=== PATIENT | female | born 1970 | race Caucasian/White ===

== ENCOUNTER 2020-01-12 11:37 | Outpatient (CLI) | payer OTHER, SELFPAY ==
--- NOTE | ~2020-01-12 | XR_ITS ---
XR knee LT 3V 01/12/2020 12:02 Indication: Left knee pain Procedure: 3 views left knee Comparison: No prior studies for comparison. Findings: No fracture or traumatic malalignment. No significant joint effusion. There is mild patello femoral compartment osteoarthritis. Impression: 1: Mild patellofemoral compartment osteoarthritis. Reviewed, dictated and finalized at location A. Impression: 1: Mild patellofemoral compartment osteoarthritis.
[2020-01-12 11:49] LABS: Basophils Absolute Auto 0.03 K/mm3 (0.00-0.10); Basophils Percent Auto 0.3 % (0.0-1.0); Eosinophils Absolute Auto 0.15 K/mm3 (0.02-0.50); Eosinophils Percent Auto 1.4 % (1.0-6.0); Hemoglobin 13.6 g/dL (12.0-15.0); Immature Granulocyte Absolute 0.04 K/mm3 (0.00-0.00); Immature Granulocyte Percent A 0.4 % (0.0-0.0); Lymphocytes Absolute Auto 1.88 K/mm3 (1.10-4.50); Lymphocytes Percent Auto 18.1 % (18.0-42.0); Mean Corpuscular Hemoglobin 30.4 pg (27.0-31.0); Mean Corpuscular Volume 89.5 fL (78.0-102.0); Mean Platelet Volume 9.1 fl (9.2-11.8); Monocytes Absolute Auto 0.62 K/mm3 (0.10-0.90); Neutrophils Absolute Auto 7.7 K/mm3 (1.7-7.2); Neutrophils Percent Auto 73.8 % (50.0-70.0); Platelet Count Result 334 K/mm3 (150-420); Red Blood Count 4.47 M/mm3 (4.20-5.40); Red Cell Distribution Width 12.9 % (11.6-14.4); White Blood Count 10.4 K/mm3 (4.8-10.8)
[2020-01-12 13:02] LABS: Anion Gap 4 mmol/L (8-16); Blood Urea Nitrogen 7 mg/dL (7-18); Calcium 9.3 mg/dL (8.5-10.1); Carbon Dioxide 32 mmol/L (21-32); Chloride 100 mmol/L (98-108); Estimated Glomerular Filt Rate > 60; Glucose 196 mg/dL (70-99); Osmolality Calculated 285 mOsm/kg (285-295); Potassium 4.3 mmol/L (3.5-5.1); Sodium 136 mmol/L (136-145); Uric Acid 3.6 mg/dL (2.6-6.0)
[2020-01-12 13:04] LABS: Erythrocyte Sedimentation Rate 18 mm/hr (0-15)
== END 2020-01-12 11:38 | disposition home or self-care (01) ==
LOC: CHSLAB 11:40
PROVIDERS: PCP Family Medicine; Visit Provider Family Medicine
DX: M25.562 Pain in left knee (principal)
CPT/HCPCS: 36415; 73562; 80048; 84550; 85025; 85652

== ENCOUNTER 2020-09-04 12:16 | Outpatient (CLI) | payer OTHER, SELFPAY ==
[2020-09-06 15:24] LABS: TB Skin Test Erythema 0 mm; TB Skin Test Induration 0 mm (0-10); TB Skin Test Interpretation Negative (Negative); TB Skin Test Site Left Arm
== END 2020-09-04 12:17 | disposition home or self-care (01) ==
PROVIDERS: PCP Family Medicine; Visit Provider Family Medicine
DX: Z11.1 Encounter for screening for respiratory tuberculosis (principal)
CPT/HCPCS: 36415; 86580

== ENCOUNTER 2021-12-13 07:49 | Outpatient (CLI) | payer OTHER, SELFPAY ==
--- NOTE | ~2021-12-13 | MM_ITS ---
EXAMINATION: MM screening jalen BI w wojciech HISTORY: Screening TECHNIQUE: Craniocaudal and mediolateral oblique 3-D tomosynthesis images were obtained and synthetic 2-D images were generated. CAD analysis was submitted and interpreted. COMPARISON: 10/08/2015 BREAST PARENCHYMAL COMPOSITION: The breasts are heterogeneously dense, which may obscure small masses . FINDINGS: There is a focal asymmetry medially in the left breast on CC view. No corresponding abnorma lity is seen on MLO view. There is no mammographic evidence for malignancy in the right breast. IMPRESSION: 1. Focal left breast asymmetry located medially on CC view. 2. Additional mammographic views and possible breast ultrasound are recommended. BI-RADS Category 0: Incomplete: Needs additional imaging evaluation. Reviewed, dictated and finalized at location A. IMPRESSION: 1. Focal left breast asymmetry located medially on CC view. 2. Additional mammographic views and possible breast ultrasound are recommended . BI-RADS Category 0: Incomplete: Needs additional imaging evaluation.
== END 2021-12-13 07:50 | disposition home or self-care (01) ==
LOC: CHSIMG 07:50
PROVIDERS: PCP Family Medicine; Visit Provider Family Medicine
DX: Z12.31 Encounter for screening mammogram for malignant neoplasm of breast (principal)
CPT/HCPCS: 77063; 77067

== ENCOUNTER 2021-12-16 09:55 | Outpatient (CLI) | payer OTHER, SELFPAY ==
--- NOTE | ~2021-12-16 | MMUS_ITS ---
EXAMINATION: MM diagnostic jalen LT w wojciech, US breast LT limited HISTORY: Left breast asymmetry on screening mammogram TECHNIQUE: Additional 3-D tomosynthesis images of the left breast were performed and synthetic 2-D im ages were generated. CAD analysis was submitted and interpreted. High resolution limited left breast ultrasound was performed. COMPARISON: 12/13/2021, 10/08/2015 FINDINGS: MAMMOGRAPHIC FINDINGS: There is a return to baseline fibroglandular appearance with spot compression of the left breast in t he area questioned on screening mammogram. ULTRASOUND: There is no evidence of focal abnormal solid or cystic mass in the vicinity of the mammographic findi ng in question. IMPRESSION: 1. No mammographic or sonographic evidence of malignancy. 2. Recommend routine screening mammography in one year. BI-RADS Category 1: Negative Reviewed, dictated and finalized at location A. IMPRESSION: 1. No mammographic or sonographic evidence of malignancy. 2. Recommend routine screening mammography in one year. BI-RADS Category 1: Negative
== END 2021-12-16 09:56 | disposition home or self-care (01) ==
LOC: CHSIMG 09:56
PROVIDERS: PCP Family Medicine; Visit Provider Family Medicine
DX: R92.8 Other abnormal and inconclusive findings on diagnostic imaging of breast (principal)
CPT/HCPCS: 76642; 77061; 77065; G0279

== ENCOUNTER 2023-04-16 09:59 | Outpatient (CLI) | payer OTHER, SELFPAY ==
--- NOTE | ~2023-04-16 | XR_ITS ---
EXAM: XR hand BI arthritis min 3V DATE: 04/16/2023 10:26 HISTORY: polyarthritis, unspecified . COMPARISON: 12/13/2015. FINDINGS: Normal mineralization. No fracture or dislocation. No lytic or blastic lesion. Scattered a rthritic changes typical of osteoarthritis, moderate at the left trapeziometacarpal joint, mild at th e right trapeziometacarpal joint, bilateral first MCP joints, left third PIP joint and left fifth DIP joint. Subchondral cyst in the proximal left third middle phalange. Moderate swan-neck deformity in the left fifth digit, mild in the right third and fourth digits. Flexion deformity in the right fifth digit. No erosion or periosteal change. Soft tissues within normal limits. IMPRESSION: Polyarticular osteoarthritis of the hands. Flexion deformity of the left fifth digit. [place] neck deformities of multiple fingers, classically associated with rheumatoid arthritis, although no other rheumatoid changes are detected. Consider laboratory screening for rheumatoid disease if no t already performed. Reviewed, dictated and finalized at location K. COMMUNICATION TOWER TECHNICIAN IMPRESSION: Polyarticular osteoarthritis of the hands. Flexion deformity of the left fifth digit. [place] neck deformities of multiple fingers, classically associated with rheumato id arthritis, although no other rheumatoid changes are detected. Consider labor atory screening for rheumatoid disease if not already performed.
== END 2023-04-16 10:00 | disposition home or self-care (01) ==
LOC: CHSIMG 10:01
PROVIDERS: PCP Family Medicine; Visit Provider Family Medicine
DX: M13.0 Polyarthritis, unspecified (principal); M21.242 Flexion deformity, left finger joints
CPT/HCPCS: 73130

== ENCOUNTER 2023-04-21 11:55 | Outpatient (CLI) | payer OTHER, SELFPAY ==
--- NOTE | ~2023-04-21 | MM_ITS ---
EXAMINATION: MM screening [facility] BI w wojciech HISTORY: Screening mammogram TECHNIQUE: Craniocaudal and mediolateral oblique 3-D tomosynthesis images were obtained and synthetic 2-D images were generated. CAD analysis was submitted and interpreted. COMPARISON: 12/16/2021, 12/13/2021, 10/08/2015 BREAST PARENCHYMAL COMPOSITION: There are scattered areas of fibroglandular density. FINDINGS: No suspicious mass, calcification, or architectural distortion are identified in either molly ast to suggest malignancy. There has been no suspicious interval change. IMPRESSION: 1. No mammographic evidence of malignancy. 2. Recommend routine screening mammography in one year. BI-RADS Category 1: Negative Reviewed, dictated and finalized at location A. OND BLENDER
== END 2023-04-21 11:56 | disposition home or self-care (01) ==
PROVIDERS: PCP Family Medicine; Visit Provider Family Medicine
DX: Z12.31 Encounter for screening mammogram for malignant neoplasm of breast (principal)
CPT/HCPCS: 77063; 77067

== ENCOUNTER 2024-07-18 14:25 | Outpatient (CLI) | payer OTHER, SELFPAY ==
--- NOTE | ~2024-07-18 | MM_ITS ---
EXAMINATION: MM screening jalen BI w wojciech HISTORY: Screening mammogram TECHNIQUE: Craniocaudal and mediolateral oblique 3-D tomosynthesis images were obtained and synthetic 2-D images were generated. CAD analysis was submitted and interpreted. COMPARISON: 04/21/2023, 12/13/2021 BREAST PARENCHYMAL COMPOSITION:Not Dense. There are scattered areas of fibroglandular density. FINDINGS: No suspicious mass, calcification, or architectural distortion are identified in either molly ast to suggest malignancy. There has been no suspicious interval change. IMPRESSION: No mammographic evidence of malignancy. Recommend routine screening mammography in one year. BI-RADS Category 1: Negative Reviewed, dictated and finalized at location .
--- OUTSIDE RECORDS SUMMARY | 2024-07-18 15:53 | XMS_ITS | Clinical Summary ---
Author Organization [facility] Address [address] [place] [address] Care Team Providers Care Tank Refinisher Name Role Phone Ta Pinto MD Primary Care Provider [phone] Allergies No known active allergies Medications metFORMIN (GLUCOPHAGE) 1000 MG tablet Take 1 tablet (1,000 mg total) by mouth 2 (two) times daily. 4 Active lisinopril (PRINIVIL) 40 MG tablet Take 1 tablet (40 mg total) by mouth daily. 4 Active JANUVIA 100 MG tablet Take 1 tablet (100 mg total) by mouth daily. 4 Active buPROPion XL (WELLBUTRIN XL) 300 MG 24 hr tablet Take 1 tablet (300 mg total) by mouth daily. 4 Active buPROPion XL (WELLBUTRIN XL) 150 MG 24 hr tablet Take 1 tablet (150 mg total) by mouth daily. 4 Active hydroCHLOROthi azide (HYDRODIURIL) 25 MG tablet Take 1 tablet (25 mg total) by mouth daily. 4 Active atorvastatin (LIPITOR) 20 MG tablet Take 1 tablet (20 mg total) by mouth daily. 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 Gender Identity Female 01/08/2024 8:52 AM CDT Sexual Orientation Straight 01/08/2024 8: 52 AM CDT Last Filed Vital Signs Vital Sign Reading Time Taken Comments Blood Pressure 144/82 01/07/2024 11:36 AM CDT Pulse 76 01/07/2024 11:36 AM CDT Temperature - - Respiratory Rate - - Oxygen Saturation 98% 01/07/2024 11: 36 AM CDT Inhaled Oxygen Concentration - - Weight 66.1 kg (145 lb 11.2 oz) 024 11:36 AM CDT Height - - Body Mass Index - - Plan of Treatment Health Maintenance Due Date Last Done Comments Cervical Cancer Screening Pa p Smear (Age 30 to 64) Every 3 Years 1970 Colorectal Cancer Screening Colonoscopy (10 Years) 1970 Kidney Health Evaluation 1970 Lipid Panel 1970 Annual Physical 1973 Pneumococcal Vaccine: Pediat rics (0 to 5 Years) and At-Risk Patients (6 to 64 Years) (1 of 2 - PCV) 1976 Diabetes: Retinopathy Eye Exam 1988 Hepatitis C 1988 DTaP, Tdap and Td Vaccines ( 1 - Tdap) 1989 Hepatitis B Vaccines (1 of 3 - 19+ 3-dose series) 1989 Cervical Cancer Screening Pa p with HPV Testing (Age 30 to 64) Every 5 Years 2000 Cervical Cancer Screening with HPV 2000 Mammogram Screening 2010 Zoster Vaccines (1 of 2) 2020 COVID-19 Vaccine ( - 2023-2 5 season) 2023 Influenza Adult (#1) 2024 PHQ-2 (Physician New Site) 04/20/2024 Hemoglobin A1C 04/30/2024 10/29/2023 Meningococcal B Vaccine Aged Out No l onger eligible based on patient's age to complete this topic Meningococcal Vaccine Aged Out No torsten jose eduardo eligible based on patient's age to complete this topic RSV Immunizations Under 20 Months Aged Out No longer eligible based on patient's age to complete this topic Procedures Procedure Name Priority Date/Time Associated Diagnosis Comments OUTSIDE LAB (SCAN ORDER) Routine 10/29/2023 from Last 3 Months or Most Recently Relevant to Health Maintenance Results * OUTSIDE LAB (10/29/2023) CREATININE (U) 35 [facility] ALBUMIN (U) <0.2 [facility] HGB A1C 7.3 % [facility] 10/29/2023 [facility] Scanned SCANNING Final Resu lt [facility] from Last 3 Months or Most Recently Relevant to Health Maintenance Insurance [facility] Care Teams Tank Refinisher Relationship Specialty Start Date End Date Ta Pinto MD [address] [place] [address] PCP - General FAMILY PRACTICE 01/23/20
--- OUTSIDE RECORDS SUMMARY | 2024-07-18 15:54 | XMS_ITS | Encounter Summary ---
Author Organization 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
--- OUTSIDE RECORDS SUMMARY | 2024-07-18 15:54 | XMS_ITS | Data Portability ---
Author Organization [facility], [address] [facility] ([place]) Address [address] [place] [address] Care Team Providers Care Front Clerk Name Role Phone ADONAY CEDENO Primary Care Provider ADONAY CEDENO Referring Provider [phone] Assessment Encounter Date Assessment Date Assessment LastModified by Organization Details LastModified Time 12/03/2023 12/03/2023 IMPRESSION: 1. Bilateral hand pain and deformities in the absence of convincing signs of RA suggests osteoarthritis is more likely. We will obtain further imaging of the hands and wrists to see if there are any erosive changes. 2. Osteoarthritis. 3. Diabetic cheiroarthropathy. PLAN: 1. MRI bilaterally of the hands. 2. May use acetaminophen up to 1 g p.o. t.i.d. p.r.n. for analgesic relief. 3. Encouraged the patient to engage in smoking cessation. 4. Encouraged patient to follow up closely with her primary care provider regarding diabetic control. 5. Follow up as needed here in rheumatology clinic. Further recommendations to follow once the results of her MRI of the hands is available. Today I had a lengthy discussion with the patient regarding my clinical impressions and overall recommendations. Differential diagnosis were discussed in detail. All of her questions and concerns were addressed in detail. I personally spent a total of 61 minutes on the patient on this date of service including both gjah-xh-fpxn and jjs-joia-ne-face time excluding any separately reportable services. [email or web address] Not available 12/04/2023 10:43:12 02/03/2024 02/03/2024 IMPRESSION: 1. Uncontrolled hypertension. 2. Seronegative rheumatoid arthritis. 3. Osteoarthritis. PLAN: 1. Labs today, including a CBC, CMP, C-reactive protein, arthritis panel, HLAB27 screen, G6PD level, serum hepatitis B and C screens. 2. Prednisone 15 mg daily for 4 days, then taper to 10 mg daily for 4 days, 5 mg daily for 4 days, then off. 3. Hydroxychloroquine 200 mg orally daily. 4. She is to monitor her blood sugars twice daily and if they meet or exceed 250 mg/dL, she is to contact her primary care provider regarding diabetic management. 5. We will call the patient in 1 week for an update on how she is doing. 6. Plaquenil screening eye exams once yearly. 7. Followup visit in 1 month with labs. [email or web address] Not available 02/04/2024 16:19:48 03/02/2024 03/02/2024 IMPRESSION: 1. Seronegative inflammatory polyarthritis, currently well controlled on low-dose hydroxychloroquine therapy. 2. Osteoarthritis. PLAN: 1. DMARD labs today. 2. Continue current low-dose hydroxychloroquine therapy. 3. Plaquenil screening eye exams once yearly. 4. Follow-up visit in 4 months at [facility] location. [email or web address] Not available 03/03/2024 14:27:38 07/14/2024 07/14/2024 IMPRESSION: 1. Seronegative RA, currently well controlled on low dose hydroxychloroquine therapy. 2. Osteoarthritis. PLAN: 1. Continue DMARD labs every 4 months for monitoring purposes. 2. Continue hydroxychloroquine 200 mg daily. 3. Plaquenil screening eye exams once yearly. 4. Followup visit in 1 year or sooner if necessary. [email or web address] Not available 07/14/2024 12:04:58 Plan of Treatment Reminders Order Date Submit Date Provider Last Modified By Organization Details Last Modified Time Details Appointments None recorded. Lab CBC 2023 024 [facility], [address] [place] [address], [place], [id number], 4 16:36:09 CMP, serum or plasma 2023 024 [facility], [address] [place] [address], [id number], 4 16:50:53 ESR (erythrocyt e sedimentati on rate), blood 2023 [facility] Only - [facility], [facility] [place] [address], [id number], 4 16:39:45 C-reactive protein, quantitativ e, serum or plasma 2023 [facility] Only - [facility], [address] [place] [address], [id number], 17:04:18 CBC 2023 [facility] Only - [facility], [address] [place] [address], [id number], 16:05:36 CMP, serum or plasma 2023 [facility] Only - [facility], [address] [place] [address], 13154, 16:27:00 C-reactive protein, quantitativ e, serum or plasma 2023 [facility] Only - [facility], [address] [place] [address], 10737, 17:27:07 hla-B27, blood 2023 [facility] Only - [facility], [address] [place] [address], 99783, 4 14:39:50 glucose-6-p hosphate dehydrogena se, QN [mass/volum e], RBC 2023 [facility] Only - [facility], [address] [place] [address], 52485, 4 09:40:03 arthritis panel 2023 [facility] Only - [facility], [address] [place] [address], 71901, 16:14:25 HBsAg (hepatitis B surface Ag), serum 2023 [facility] - [facility], [address] [place] [address], 07606, 16:41:19 Hepatitis B virus core Ab, qual immunoassay , serum or plasma 2023 [facility] - [facility], [address] [place] [address], 90138, 07:41:55 hepatitis C Ab, serum 2023 [facility], [address] [place] [address], 33363, 17:00:54 Referral None recorded. Procedures None recorded. Surgeries None recorded. Imaging None recorded. Medication Orders None recorded. Patient TargetsNo targets recorded. Patient InstructionsNo instructions recorded. Reason for Referral None Reported. Results Created Date Observation Date Name Description Value Unit Range Abnormal Flag Note LastModifiedBy Organization Detail LastModifiedTime 02/03/2002/03/2024 CBC CBC Not Available [facility] [address] [place] [address], [id number], 02/03/2024 16:05:36 02/03/20 24 02/03/2024 CBC WBC 7.5 K/uL 3.8-11 .2 Not Available [facility] - [facility] [address] [place] [address], 64900, 02/03/2024 16:05:36 02/03/20 24 02/03/2024 CBC RBC 4.41 M/uL 3.92-5 .10 Not Available [facility] [address] [place] [address], 13229, 02/03/2024 16:05:36 02/03/20 24 02/03/2024 CBC HGB 13.4 g/dL 11.8-1 5.3 Not Available [facility] [address] [place] [address], 03403, 02/03/2024 16:05:36 02/03/20 24 02/03/2024 CBC HCT 38.7 % 36.5-4 4.8 Not Available [facility] [address] [place] [address], 98461, 02/03/2024 16:05:36 02/03/2002/03/2024 CBC MCV 87.8 fL 80.0-9 9.0 Not Available [facility] [address] [place] [address], 99129, 02/03/2024 16:05:36 02/03/2002/03/2024 CBC MCH 30.4 pg 25.5-3 3.6 Not Available [facility] [address] [place] [address], 82630, 02/03/2024 16:05:36 02/03/2002/03/2024 CBC MCHC 34.6 g/dL 32.0-3 6.0 Not Available [facility] [address] [place] [address], 49620, 02/03/2024 16:05:36 02/03/20 24 02/03/2024 CBC RDW-SD 44.4 fL 35.1 - 46.3 Not Available [facility] [address] [place] [address], 21594, 02/03/2024 16:05:36 02/03/2002/03/2024 CBC plt 348 K/uL 130-40 0 Not Available [facility] [address] [place] [address], 21935, 02/03/2024 16:05:36 02/03/2002/03/2024 CBC MPV 9.8 fL 9.3-12 .8 Not Available [facility] [address] [place] [address], 39450, 02/03/2024 16:05:36 02/03/2002/03/2024 CMP, serum or plasm a comp. met. panel Not Available [facility] [address] [place] [address], [id number], 02/03/2024 16:27:00 02/03/2002/03/2024 CMP, serum or plasm a sodium 133 mmol/ L 136-14 6 low Not Available [facility] [address] [place] [address], 50453, 02/03/2024 16:27:00 02/03/2002/03/2024 CMP, serum or plasm a potassium 3.9 mmol/ L 3.5-5. 1 Not Available [facility] [address] [place] [address], 87188, 02/03/2024 16:27:00 02/03/2002/03/2024 CMP, serum or plasm a chloride 102 mmol/ L 98-110 Not Available [facility] [address] [place] [address], 65537, 02/03/2024 16:27:00 02/03/2002/03/2024 CMP, serum or plasm a CO2 30 mEq/L 20-32 Not Available [facility] [address] [place] [address], 00224, 02/03/2024 16:27:00 02/03/2002/03/2024 CMP, serum or plasm a anion gap 5 mmol/ L 10-22 low Not Available [facility] [address] [place] [address], 99731, 02/03/2024 16:27:00 02/03/2002/03/2024 CMP, serum or plasm a glucose 123 mg/dL 70-100 high Not Available [facility] [address] [place] [address], 97663, 02/03/2024 16:27:00 02/03/2002/03/2024 CMP, serum or plasm a calcium 9.8 mg/dL 8.4-10 .4 Not Available [facility] [address] [place] [address], 48925, 02/03/2024 16:27:00 02/03/2002/03/2024 CMP, serum or plasm a total protein 6.2 g/dL 6.4-8. 3 low Not Available [facility] [address] [place] [address], 51565, 02/03/2024 16:27:00 02/03/2002/03/2024 CMP, serum or plasm a albumin 4.0 g/dL 3.5-5. 3 Not Available [facility] [address] [place] [address], 90336, 02/03/2024 16:27:00 02/03/2002/03/2024 CMP, serum or plasm a ALP 91 U/L 44 - 127 Not Available [facility] [address] [place] [address], 33096, 02/03/2024 16:27:00 02/03/2002/03/2024 CMP, serum or plasm a AST (SGOT) 16 U/L 10-40 Not Available [facility] - [facility] [address] [place] [address], 82331, 02/03/2024 16:27:00 02/03/2002/03/2024 CMP, serum or plasm a total bilirubin 0.4 mg/dL 0.2-1. 0 Not Available [facility] [address] [place] [address], 20861, 02/03/2024 16:27:00 02/03/2002/03/2024 CMP, serum or plasm a ALT (SGPT) 15 U/L 8-35 Not Available [facility] [address] [place] [address], 60584, 02/03/2024 16:27:00 02/03/20 24 02/03/2024 CMP, serum or plasm a BUN 6 mg/dL 7-21 low Not Available [facility] [address] [place] [address], 40134, 02/03/2024 16:27:00 02/03/20 24 02/03/2024 CMP, serum or plasm a creatinine 0.7 mg/dL 0.7-1. 3 Not Available [facility] [address] [place] [address], 87021, 02/03/2024 16:27:00 02/03/20 24 02/03/2024 CMP, serum or plasm a GFR(non-afri can australian) 93 Not Available [facility] [address] [place] [address], 61861, 02/03/2024 16:27:00 02/03/2002/03/2024 CMP, serum or plasm a GFR() 113 (MORNING NEWS PRODUCER PRISCILA KIDNE Y DISEA SE HAS A GFR LESS THAN 60 ML/NY N/1.7 3 MM FOR A PERIO D OF THREE MONTH S OR MORE. ) Not Available [facility] [address] [place] [address], 59518, 02/03/2024 16:27:00 02/03/20 24 02/03/2024 HBsAg (hepa titis B surfa ce Ag), serum hepatitis B surface Ag NONREA CTIVE nonrea ctive Not Available [facility] [address] [place] [address], 41506, 02/03/2024 16:41:19 02/03/2002/03/2024 hepat itis C Ab, serum hepatitis C Ab NONREA CTIVE nonrea ctive Not Available [facility] [address] [place] [address], 97632, 02/03/2024 17:00:54 02/03/20 24 02/03/2024 C-ayesha ctive prote in, quant itati ve, serum or plasm a CRP Not Available [facility] [address] [place] [address], 95238, 02/03/2024 17:27:07 02/03/2002/03/2024 C-ayesha ctive prote in, quant itati ve, serum or plasm a CRP <0.4 mg/dL <0.4-0 .5 Not Available [facility] [address] [place] [address], 23796, 02/03/2024 17:27:07 02/03/2002/04/2024 Hepat itis B virus core Ab, qual immun oassa y, serum or plasm a hepatitis B core Ab NEGATI VE negati ve Not Available [facility] [address] [place] [address], 50508, 02/04/2024 07:41:55 02/03/2002/03/2024 arthr itis panel uric acid 3.7 mg/dL 2.3-6. 6 Not Available [facility] [address] [place] [address], 39318, 02/04/2024 13:08:31 02/03/2002/03/2024 arthr itis panel sed rate 8 mm/HR 0 - 30 Not Available [facility] [address] [place] [address], 15205, 02/04/2024 13:08:31 02/03/2002/03/2024 arthr itis panel rf 4 IU/mL <3.5-1 4 Not Available [facility] [address] [place] [address], 21974, 02/04/2024 13:08:31 02/03/2002/03/2024 arthr itis panel ccp antibody, IgG <0.54 U/mL <=4.9 Not Available [facility] [address] [place] [address], 23234, 02/04/2024 13:08:31 02/03/2002/04/2024 arthr itis panel arthritis panel Not Available [facility] [address] [place] [address], 47732, 02/04/2024 13:08:31 02/03/20 24 02/04/2024 arthr itis panel CORBIN screen NEGATI VE negati ve Perfo rmed by Bio-R ad enzym e immun oassa y Not Available [facility] - [facility] [address] [place] [address], 91554, 02/04/2024 13:08:31 02/03/2002/05/2024 gluco se-6- phosp hate dehyd rogen ase, QN [mass /volu me], RBC g-6 pd quant w/RBC Not Available [facility] [address] [place] [address], 89238, 02/05/2024 12:06:55 02/03/2002/05/2024 gluco se-6- phosp hate dehyd rogen ase, QN [mass /volu me], RBC erythrocyte count. 4.52 x10E6 /uL Refer ence inter shanell: 3.77- 5.28 x10E6 /uL Not Available [facility] - [facility] [address] [place] [address], 69583, 02/05/2024 12:06:55 02/03/2002/05/2024 gluco se-6- phosp hate dehyd rogen ase, QN [mass /volu me], RBC glucose 6-pd quant. 260 127-42 7 When decre ased, G-6-P D, Quant . value s are assoc iated with acute hemol ytic anemi a when defic ient indiv idual s are expos ed to oxida tive stres s, such as with certa in medic ation s (e.g. , prima quine ), infec tion, or inges tion of les beans . Cauti on: In patie nts with acute hemol ysis (e.g. , abnor ramirez low RBC value s), testi ng for G-6-P D may be false ly fabi l becau se older eryth rocyt es with a highe r enzym e defic iency have been hemol yzed. Young eryth rocyt es and retic ulocy rukhsana have fabi l or near- fabi l enzym e activ ity. Fabi l value s of G-6-P D may be measu red for sever al weeks follo wing a hemol ytic event . Not Available [facility] [address] [place] [address], 63050, 02/05/2024 12:06:55 02/03/2002/10/2024 hla-B 27, blood hla-B27, DNA typing Not Available [facility] [address] [place] [address], 49362, 02/10/2024 14:39:50 02/03/2002/10/2024 hla-B 27, blood hla-B27 NEGATI VE HLA-B *27 Negat navi B27 allel e inter preta tion for all loci based on IMGT/ HLA datab ase versi on 3.51. 0 This test was devel oped and its perfo rmanc e kris cteri stics deter mined by [facility]. It has not been clear ed or appro [place] by the Food and Drug Admin istra tion. [facility] CLIA ID Numbe r [id number] This test was perfo rmed using Polym erase Chain React ion (PCR) and Seque nce Speci fic Oligo nucle otide Probe s (SSOP ) techn ique. Seque nce Based Typin g (SBT) may be used as a suppl ement al metho d when neces ladi. If you have quest ions, pleas e call HLA custo suleiman servi ce at [phone] or email at [facility] [email or web address]. Not Available [facility] [address] [place] [address], 71621, 02/10/2024 14:39:50 02/03/2002/05/2024 gluco se-6- phosp hate dehyd rogen ase, QN [mass /volu me], RBC g-6 pd quant w/RBC Not Available [facility] [address] [place] [address], 02450, 02/05/2024 09:40:03 02/03/20 24 02/05/2024 gluco se-6- phosp hate dehyd rogen ase, QN [mass /volu me], RBC erythrocyte count. PENDIN G Not Available [facility] [address] [place] [address], 48767, 02/05/2024 09:40:03 02/03/2002/05/2024 gluco se-6- phosp hate dehyd rogen ase, QN [mass /volu me], RBC glucose 6-pd quant. 260 127-42 7 When decre ased, G-6-P D, Quant . value s are assoc iated with acute hemol ytic anemi a when defic ient indiv idual s are expos ed to oxida tive stres s, such as with certa in medic ation s (e.g. , prima quine ), infec tion, or inges tion of les beans . Cauti on: In patie nts with acute hemol ysis (e.g. , abnor ramirez low RBC value s), testi ng for G-6-P D may be false ly fabi l becau se older eryth rocyt es with a highe r enzym e defic iency have been hemol yzed. Young eryth rocyt es and retic ulocy rukhsana have fabi l or near- fabi l enzym e activ ity. Fabi l value s of G-6-P D may be measu red for sever al weeks follo wing a hemol ytic event . Not Available [facility] [address] [place] [address], 07833, 02/05/2024 09:40:03 02/03/2002/03/2024 arthr itis panel arthritis panel Not Available [facility] [address] [place] [address], 58463, 02/03/2024 17:27:05 02/03/2002/03/2024 arthr itis panel uric acid 3.7 mg/dL 2.3-6. 6 Not Available [facility] [address] [place] [address], 32440, 02/03/2024 17:27:05 02/03/2002/03/2024 arthr itis panel sed rate 8 mm/HR 0 - 30 Not Available [facility] [address] [place] [address], 70912, 02/03/2024 17:27:05 02/03/2002/03/2024 arthr itis panel CORBIN screen PENDIN G Not Available [facility] [address] [place] [address], 77183, 02/03/2024 17:27:05 02/03/2002/03/2024 arthr itis panel rf 4 IU/mL <3.5-1 4 Not Available [facility] [address] [place] [address], 17309, 02/03/2024 17:27:05 02/03/2002/03/2024 arthr itis panel ccp antibody, IgG <0.54 U/mL <=4.9 Not Available [facility] [address] [place] [address], 73547, 02/03/2024 17:27:05 02/03/2002/03/2024 arthr itis panel arthritis panel Not Available [facility] - [facility] [address] [place] [address], 94351, 02/03/2024 16:26:58 02/03/2002/03/2024 arthr itis panel uric acid 3.7 mg/dL 2.3-6. 6 Not Available [facility] [address] [place] [address], 26189, 02/03/2024 16:26:58 02/03/2002/03/2024 arthr itis panel sed rate 8 mm/HR 0 - 30 Not Available [facility] [address] [place] [address], 07257, 02/03/2024 16:26:58 02/03/2002/03/2024 arthr itis panel CORBIN screen PENDIN G Not Available [facility] [address] [place] [address], 41535, 02/03/2024 16:26:58 02/03/2002/03/2024 arthr itis panel rf 4 IU/mL <3.5-1 4 Not Available [facility] [address] [place] [address], 25229, 02/03/2024 16:26:58 02/03/2002/03/2024 arthr itis panel ccp antibody, IgG PENDIN G Not Available [facility] [address] [place] [address], 95163, 02/03/2024 16:26:58 02/03/2002/03/2024 arthr itis panel arthritis panel Not Available [facility] [address] [place] [address], 98790, 02/03/2024 16:14:25 02/03/2002/03/2024 arthr itis panel uric acid PENDIN G Not Available [facility] [address] [place] [address], 77233, 02/03/2024 16:14:25 02/03/2002/03/2024 arthr itis panel sed rate 8 mm/HR 0 - 30 Not Available [facility] [address] [place] [address], 80438, 02/03/2024 16:14:25 02/03/20 24 02/03/2024 arthr itis panel CORBIN screen PENDIN G Not Available [facility] [address] [place] [address], 17696, 02/03/2024 16:14:25 02/03/20 24 02/03/2024 arthr itis panel rf PENDIN G Not Available [facility] [address] [place] [address], 25659, 02/03/2024 16:14:25 02/03/20 24 02/03/2024 arthr itis panel ccp antibody, IgG PENDIN G Not Available [facility] [address] [place] [address], 00237, 02/03/2024 16:14:25 03/02/20 24 03/02/2024 CBC CBC Not Available [facility] [address] [place] [address], 57085, 03/02/2024 16:36:08 03/02/20 24 03/02/2024 CBC WBC 7.5 K/uL 3.8-11 .2 Not Available [facility] [address] [place] [address], 87886, 03/02/2024 16:36:08 03/02/20 24 03/02/2024 CBC RBC 4.44 M/uL 3.92-5 .10 Not Available [facility] [address] [place] [address], 71177, 03/02/2024 16:36:08 03/02/20 24 03/02/2024 CBC HGB 13.0 g/dL 11.8-1 5.3 Not Available [facility] [address] [place] [address], 06563, 03/02/2024 16:36:08 03/02/20 24 03/02/2024 CBC HCT 39.0 % 36.5-4 4.8 Not Available [facility] [address] [place] [address], 99514, 03/02/2024 16:36:08 03/02/20 24 03/02/2024 CBC MCV 87.8 fL 80.0-9 9.0 Not Available [facility] [address] [place] [address], 02572, 03/02/2024 16:36:08 03/02/20 24 03/02/2024 CBC MCH 29.3 pg 25.5-3 3.6 Not Available [facility] [address] [place] [address], 72417, 03/02/2024 16:36:08 03/02/20 24 03/02/2024 CBC MCHC 33.3 g/dL 32.0-3 6.0 Not Available [facility] [address] [place] [address], 74533, 03/02/2024 16:36:08 03/02/20 24 03/02/2024 CBC RDW-SD 43.1 fL 35.1 - 46.3 Not Available [facility] [address] [place] [address], 94875, 03/02/2024 16:36:08 03/02/20 24 03/02/2024 CBC plt 349 K/uL 130-40 0 Not Available [facility] [address] [place] [address], 19009, 03/02/2024 16:36:08 03/02/20 24 03/02/2024 CBC MPV 10.2 fL 9.3-12 .8 Not Available [facility] [address] [place] [address], 78972, 03/02/2024 16:36:08 03/02/20 24 03/02/2024 ESR (eryt hrocy te sedim entat ion rate) , blood sed rate 9 mm/HR 0 - 30 Not Available [facility] [address] [place] [address], 33483, 03/02/2024 16:39:45 03/02/20 24 03/02/2024 CMP, serum or plasm a comp. met. panel Not Available [facility] [address] [place] [address], 84813, 03/02/2024 16:50:53 03/02/20 24 03/02/2024 CMP, serum or plasm a sodium 136 mmol/ L 136-14 6 Not Available [facility] [address] [place] [address], 99633, 03/02/2024 16:50:53 03/02/20 24 03/02/2024 CMP, serum or plasm a potassium 4.2 mmol/ L 3.5-5. 1 Not Available [facility] [address] [place] [address], 13234, 03/02/2024 16:50:53 03/02/20 24 03/02/2024 CMP, serum or plasm a chloride 103 mmol/ L 98-110 Not Available [facility] [address] [place] [address], 60228, 03/02/2024 16:50:53 03/02/20 24 03/02/2024 CMP, serum or plasm a CO2 32 mEq/L 20-32 Not Available [facility] [address] [place] [address], 61442, 03/02/2024 16:50:53 03/02/20 24 03/02/2024 CMP, serum or plasm a anion gap 5 mmol/ L 10-22 low Not Available [facility] [address] [place] [address], 00496, 03/02/2024 16:50:53 03/02/20 24 03/02/2024 CMP, serum or plasm a glucose 127 mg/dL 70-100 high Not Available [facility] [address] [place] [address], 59698, 03/02/2024 16:50:53 03/02/20 24 03/02/2024 CMP, serum or plasm a calcium 10.0 mg/dL 8.4-10 .4 Not Available [facility] [address] [place] [address], 15194, 03/02/2024 16:50:53 03/02/20 24 03/02/2024 CMP, serum or plasm a total protein 6.3 g/dL 6.4-8. 3 low Not Available [facility] [address] [place] [address], 22391, 03/02/2024 16:50:53 03/02/20 24 03/02/2024 CMP, serum or plasm a albumin 4.1 g/dL 3.5-5. 3 Not Available [facility] [address] [place] [address], 91938, 03/02/2024 16:50:53 03/02/20 24 03/02/2024 CMP, serum or plasm a ALP 93 U/L 44 - 127 Not Available [facility] [address] [place] [address], 81638, 03/02/2024 16:50:53 03/02/20 24 03/02/2024 CMP, serum or plasm a AST (SGOT) 16 U/L 10-40 Not Available [facility] [address] [place] [address], 14971, 03/02/2024 16:50:53 03/02/20 24 03/02/2024 CMP, serum or plasm a total bilirubin 0.4 mg/dL 0.2-1. 0 Not Available [facility] [address] [place] [address], 20933, 03/02/2024 16:50:53 03/02/20 24 03/02/2024 CMP, serum or plasm a ALT (SGPT) 14 U/L 8-35 Not Available [facility] [address] [place] [address], 28701, 03/02/2024 16:50:53 03/02/20 24 03/02/2024 CMP, serum or plasm a BUN 7 mg/dL 7-21 Not Available [facility] [address] [place] [address], 64762, 03/02/2024 16:50:53 03/02/20 24 03/02/2024 CMP, serum or plasm a creatinine 0.7 mg/dL 0.7-1. 3 Not Available [facility] [address] [place] [address], 48412, 03/02/2024 16:50:53 03/02/20 24 03/02/2024 CMP, serum or plasm a GFR(non-afri can australian) 93 Not Available [facility] Laboratory [address] [place] [address], [id number], 03/02/2024 16:50:53 03/02/20 24 03/02/2024 CMP, serum or plasm a GFR() 113 (MORNING NEWS PRODUCER PRISCILA KIDNE Y DISEA SE HAS A GFR LESS THAN 60 ML/NY N/1.7 3 MM FOR A PERIO D OF THREE MONTH S OR MORE. ) Not Available [facility] [address] [place] [address], [id number], 03/02/2024 16:50:53 03/02/20 24 03/02/2024 C-ayesha ctive prote in, quant itati ve, serum or plasm a CRP Not Available [facility] [address] [place] [address], [id number], 03/02/2024 17:04:18 03/02/20 24 03/02/2024 C-ayesha ctive prote in, quant itati ve, serum or plasm a CRP <0.4 mg/dL <0.4-0 .5 Not Available [facility] [address] [place] [address], [id number], 03/02/2024 17:04:18 02/10/20 25 05/30/2024 CBC CBC Not Available [facility] [address] [place] [address], [id number], 05/30/2024 13:25:19 05/30/19 25 05/30/2024 CBC WBC 7.1 K/uL 3.8-11 .2 Not Available [facility] [address] [place] [address], [id number], 05/30/2024 13:25:19 05/30/19 25 05/30/2024 CBC RBC 4.65 M/uL 3.92-5 .10 Not Available [facility] [address] [place] [address], [id number], 05/30/2024 13:25:19 05/30/19 25 05/30/2024 CBC HGB 13.6 g/dL 11.8-1 5.3 Not Available [facility] [address] [place] [address], [id number], 05/30/2024 13:25:19 05/30/19 25 05/30/2024 CBC HCT 40.0 % 36.5-4 4.8 Not Available [facility] [address] [place] [address], [id number], 05/30/2024 13:25:19 05/30/19 25 05/30/2024 CBC MCV 86.0 fL 80.0-9 9.0 Not Available [facility] [address] [place] [address], [id number], 05/30/2024 13:25:19 05/30/19 25 05/30/2024 CBC MCH 29.2 pg 25.5-3 3.6 Not Available [facility] [address] [place] [address], [id number], 05/30/2024 13:25:19 05/30/19 25 05/30/2024 CBC MCHC 34.0 g/dL 32.0-3 6.0 Not Available [facility] [address] [place] [address], 14004, 05/30/2024 13:25:19 05/30/19 25 05/30/2024 CBC RDW-SD 42.1 fL 35.1 - 46.3 Not Available [facility] [address] [place] [address], 18498, 05/30/2024 13:25:19 05/30/19 25 05/30/2024 CBC plt 344 K/uL 130-40 0 Not Available [facility] [address] [place] [address], [id number], 05/30/2024 13:25:19 05/30/19 25 05/30/2024 CBC MPV 9.8 fL 9.3-12 .8 Not Available [facility] [address] [place] [address], [id number], 05/30/2024 13:25:19 05/30/19 25 05/30/2024 ESR (eryt hrocy te sedim entat ion rate) , blood sed rate 6 mm/HR 0 - 30 Not Available [facility] [address] [place] [address], [id number], 05/30/2024 13:28:20 05/30/19 25 05/30/2024 C-ayesha ctive prote in, quant itati ve, serum or plasm a CRP Not Available [facility] [address] [place] [address], 36373, 05/30/2024 15:53:06 05/30/19 25 05/30/2024 C-ayesha ctive prote in, quant itati ve, serum or plasm a CRP <0.5 mg/dL <0.4-0 .5 Not Available [facility] [address] [place] [address], [id number], 05/30/2024 15:53:06 05/30/19 25 05/30/2024 CMP, serum or plasm a comp. met. panel Not Available [facility] [address] [place] [address], [id number], 05/30/2024 16:39:41 05/30/19 25 05/30/2024 CMP, serum or plasm a sodium 136 mmol/ L 136-14 6 Not Available [facility] [address] [place] [address], [id number], 05/30/2024 16:39:41 05/30/19 25 05/30/2024 CMP, serum or plasm a potassium 4.0 mmol/ L 3.5-5. 1 Not Available [facility] [address] [place] [address], 41824, 05/30/2024 16:39:41 05/30/19 25 05/30/2024 CMP, serum or plasm a chloride 97 mmol/ L 98-110 low Not Available [facility] [address] [place] [address], 42623, 05/30/2024 16:39:41 05/30/19 25 05/30/2024 CMP, serum or plasm a CO2 30 mEq/L 20-32 Not Available [facility] [address] [place] [address], 55521, 05/30/2024 16:39:41 05/30/19 25 05/30/2024 CMP, serum or plasm a anion gap 13 mmol/ L 10-22 Not Available [facility] [address] [place] [address], 20643, 05/30/2024 16:39:41 05/30/19 25 05/30/2024 CMP, serum or plasm a glucose 170 mg/dL 70-100 high Not Available [facility] [address] [place] [address], 61292, 05/30/2024 16:39:41 05/30/19 25 05/30/2024 CMP, serum or plasm a calcium 10.7 mg/dL 8.4-10 .4 high Not Available [facility] [address] [place] [address], 65804, 05/30/2024 16:39:41 05/30/19 25 05/30/2024 CMP, serum or plasm a total protein 6.7 g/dL 6.4-8. 3 Not Available [facility] [address] [place] [address], 58612, 05/30/2024 16:39:41 05/30/19 25 05/30/2024 CMP, serum or plasm a albumin 4.5 g/dL 3.5-5. 3 Not Available [facility] [address] [place] [address], 48710, 05/30/2024 16:39:41 05/30/19 25 05/30/2024 CMP, serum or plasm a ALP 101 U/L 44 - 127 Not Available [facility] [address] [place] [address], 68065, 05/30/2024 16:39:41 05/30/19 25 05/30/2024 CMP, serum or plasm a AST (SGOT) 13 U/L 10-40 Not Available [facility] [address] [place] [address], 11789, 05/30/2024 16:39:41 05/30/19 25 05/30/2024 CMP, serum or plasm a total bilirubin 0.5 mg/dL 0.2-1. 2 Not Available [facility] [address] [place] [address], 28593, 05/30/2024 16:39:41 05/30/19 25 05/30/2024 CMP, serum or plasm a ALT (SGPT) 14 U/L 8-35 Not Available [facility] [address] [place] [address], 28043, 05/30/2024 16:39:41 05/30/19 25 05/30/2024 CMP, serum or plasm a BUN 7 mg/dL 7-21 Not Available [facility] [address] [place] [address], 34608, 05/30/2024 16:39:41 05/30/19 25 05/30/2024 CMP, serum or plasm a creatinine 0.8 mg/dL 0.7-1. 3 Not Available [facility] [address] [place] [address], 71184, 05/30/2024 16:39:41 05/30/19 25 05/30/2024 CMP, serum or plasm a CKD-epi GFR 88 eGFR was calcu lated using the 2020 CKD-E PI equat ion. (Pediatric Lpn priscila Kidne y Disea se has an eGFR less than 60 mL/mi n/1.7 3mm for a perio d of three month s or more. ) This calcu latio n has not been valid ated for patie nt ages <18 or >90 years old. Not Available [facility] [address], [address], 05/30/2024 16:39:41 01/21/20 24 01/15/2024 MRI, hand, w/o contr ast No observ ation record ed. [facility] [address], [place], [address], 01/24/2024 23:10:57 01/21/20 24 01/15/2024 MRI, hand, w/o contr ast No observ ation record ed. [email or web address] [facility] [address] [place], [address], 01/25/2024 20:30:52 Result Notes None recorded. 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 5816663617854 09 Active 2023 Candelario Olmedo MD [address] [place] [address], 75[address], [facility] 4 13:41:11 Pain of bilateral hands 8728476657829 9109 Active 2023 Candelario Olmedo MD [address] [place] [address], 70426[address], [facility] 4 13:41:18 Hypertensiv e disorder 37607246 Active 2023 Candelario Olmedo MD [address] [place] [address], [phone], [facility] 4 12:18:06 Undifferent iated inflammator y arthritis 820632667 Active 2023 Kristyn James [facility] 5 15:39:22 Degenerativ e joint disease involving multiple joints 707366990 Active 2023 Candelario Olmedo MD [address] [place] [address], [address], [facility] 4 12:18:26 Problem Notes None recorded. Procedures Surgical History Date Name Laterality Status Provider Name and Address Organization Details Recorded Time delivery completed Not Available Health Note 11/26/2023 13:47:57 Colonoscopy with biopsy completed Not Available Health Note 11/26/2023 13:47:57 Imaging Results Imaging Date Name Status LastModified by Organiz ation Details LastModified Time 01/15/2024 MRI, hand, w/o contrast completed LEONIDES [facility] [address] [place], [address], 01/24/2024 23:10:57 01/15/2024 MRI, hand, w/o contrast completed [facility] [address] [place], [address], 01/25/2024 20:30:52 Procedure Notes None recorded. Medical Equipment None Reported. Allergies No known drug allergies Medications Name Sig Start Date Stop Date Status Note LastModified by Organization Details LastModified Time atorvastati n 20 mg tablet TAKE 1 TABLET BY MOUTH ONCE DAILY active Not Available Not Available No t Available prednisone 5 mg tablet TAKE 3 TABLETS BY MOUTH ONCE DAILY FOR 4 DAYS, THEN TAKE 2 TABLETS ONCE DAILY FOR 4 DAYS, THEN TAKE 1 TABLET DAILY FOR 4 DAYS 07/14 completed Not Available Not Available Not Available amlodipine 5 mg tablet Take 1 tablet every day by oral route. active Not Available Not Available No t Available alprazolam 0.5 mg tablet TAKE 1 TABLET BY MOUTH THREE TIMES DAILY NEEDED FOR SEVERE ANXIETY active Not Available Not Available No t Available [employer] Ultra Test strips USE 1 STRIP TO CHECK GLUCOSE ONCE DAILY active Not Available Not Available No t Available metformin 1,000 mg tablet TAKE 1 TABLET BY MOUTH TWICE DAILY active Not Available Not Available No t Available hydrochloro thiazide 25 mg tablet TAKE 1 TABLET BY MOUTH ONCE DAILY active Not Available Not Available No t Available hydroxychlo roquine 200 mg tablet Take 1 tablet every day by oral route. 2024 active Not Available Not Available Not Avai lable lisinopril 40 mg tablet TAKE 1 TABLET BY MOUTH ONCE DAILY active Not Available Not Available No t Available bupropion HCl XL 300 mg 24 hr tablet, extended release TAKE 1 TABLET BY MOUTH ONCE DAILY active Not Available Not Available No t Available bupropion HCl XL 150 mg 24 hr tablet, extended release TAKE 1 TABLET BY MOUTH ONCE DAILY active Not Available Not Available No t Available Januvia 100 mg tablet TAKE 1 TABLET BY MOUTH ONCE DAILY 07/14 completed Not Available Not Available Not Available liraglutide 0.6 mg/0.1 mL (18 mg/3 mL) subcutaneou s pen injector INJECT 1.8 MG SUBCUTANE OUSLY ONCE DAILY active Not Available Not Available No t Available TRUEplus Pen Needle 32 gauge x USE TO INJECT VICTOZA DAILY active Not Available Not Available No t Available Vitals Date Recorded Body weight Heart rate Oxygen saturation Oxygen saturation in Arterial blood by Pulse oximetry Pain severity - 0-10 verbal numeric rating [Score] - Reported Systolic blood pressure Diastolic blood pressure Provider Name and Address Organization Details Last Updated DateTime 4 83413.1 2 g 64 /min 99 % 99 % 2 138 mm[Hg] 70 mm[Hg] Barbara Juarez [facility] 4 12:59:39 Date Recorded Body height Body mass index (BMI) Body weight Heart rate Oxygen saturation Oxygen saturation in Arterial blood by Pulse oximetry Pain severity - 0-10 verbal numeric rating [Score] - Reported Systolic blood pressure Diastolic blood pressure Provider Name and Address Organization Details Last Updated DateTime 4 177.8 cm 21.6 kg/m2 47115.5 7 g 58 /min 97 % 97 % 3 168 mm[Hg] 90 mm[Hg] Betty Kathrinkaron [facility] 4 11:49:41 Date Recorded Body height Body mass index (BMI) Body weight Heart rate Oxygen saturation Oxygen saturation in Arterial blood by Pulse oximetry Pain severity - 0-10 verbal numeric rating [Score] - Reported Systolic blood pressure Diastolic blood pressure Provider Name and Address Organization Details Last Updated DateTime 4 177.8 cm 21.7 kg/m2 42227.0 9 g 66 /min 98 % 98 % 0 148 mm[Hg] 90 mm[Hg] Betty Kathrinkaron [facility] 4 11:54:53 Date Recorded Body height Body mass index (BMI) Body weight Heart rate Oxygen saturation Oxygen saturation in Arterial blood by Pulse oximetry Systolic blood pressure Diastolic blood pressure Provider Name and Address Organization Details Last Updated DateTime 5 177.8 cm 20.1 kg/m2 71556.9 3 g 73 /min 97 % 97 % 118 mm[Hg] 68 mm[Hg] Cinthya Wilkinson [facility] 5 09:12:42 Social History Question Answer Notes LastModified by Organizat ion Details LastModified Time Tobacco Smoking Status Current Every Day Smoker Betty carmenza [facility] 02/03/2024 11:50:14 Do You Have An Advance Directive? No [email or web address] Information not available 11/26/2023 What Is Your Level Of Alcohol Consumption? Occasional [email or web address] Information not available 11/26/2023 How Many Times Per Week Do You Consume Alcohol? Less Than 1 Time Per Week [email or web address] Information not available 11/26/2023 What Is Your Level Of Caffeine Consumption? Moderate [email or web address] Information not available 11/26/2023 Are You Currently Employed? 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 Less Than 1 Time Per Week [email or web address] Information not available 11/26/2023 How Many Packs Per Day (PPD)? 1/2 Pack Per Day [email or web address] Information not available 11/26/2023 How Long Have You Smoked? 2019 [email or web address] Information not available 02/03/2024 Do You Have A Medical Power Of Coverage Analyst? No [email or web address] Information not available 11/26/2023 What Was The Date Of Your Most Recent Tobacco Screening? 12/03/2023 [email or web address] Information not available 11/26/2023 What Is Your Relationship Status? Other [email or web address] Information not available 11/26/2023 Do You Use Any Illicit Or Recreational Drugs? No [email or web address] Information not available 11/26/2023 Sex: Unknown Functional Status Question Answer Note LastModified by Organizat ion Details LastModified Time What is your exercise level? Occasional [email or web address] Information not available 11/26/2023 Mental Status None recorded. Family History Relationship Description Onset Age of this Age Resolved Age Notes LastModified by Organization Details LastModified Time Maternal Grandmother Arthritis [email or web address] Not available 11/2023 13:47:55 Maternal Grandmother Heart disease [email or web address] Not available 2023 13:47:55 Maternal Grandmother Hypercholest erolemia [email or web address] Not available 2023 13:47:56 Maternal Grandmother Cerebrovascu lar accident [email or web address] Not available 11/2023 13:47:56 Paternal Grandmother Arthritis [email or web address] Not available 11/2023 13:47:56 Mother Family history of malignant neoplasm [email or web address] Not available 2023 13:47:56 Mother Heart disease [email or web address] Not available 2023 13:47:56 Mother Hypertensive disorder [email or web address] Not available 2023 13:47:56 Mother Hypercholest erolemia [email or web address] Not available 2023 13:47:56 Mother Cerebrovascu lar accident [email or web address] Not available 11/2023 13:47:56 Father Chronic obstructive pulmonary disease [email or web address] Not available 2023 13:47:56 Father Heart disease [email or web address] Not available 2023 13:47:56 Unspecified Relation Diabetes mellitus [email or web address] Not available 2023 13:47:56 Maternal Grandfather Heart disease [email or web address] Not available 2023 13:47:56 Maternal Grandfather Hypertensive disorder [email or web address] Not available 2023 13:47:56 Medical History Condition Response Diabetes Y Anxiety Disorder N Bleeding Disorder N Attention-deficit Hyperactivity Disorder N High Blood Pressure Y Arthritis N Hyperlipidemia N Cancer N Thyroid Problems N Stroke N Asthma N COPD N Depression N Anemia N Seizures N Heart Disease N Fibromyalgia N Osteoporosis N Kidney Disease N Gynecological HistoryNo gynecological history recorded. Obstetrics History GPAL:G 0 P 0 0 0 0 Past Encounters Encounter ID Performer Location Encounter Start Date Encounter Closed Date Diagnosis/Indication Diagnosis SNOMED-CT Code Diagnosis ICD10 Code Diagnosis Note [id number] Candelario Olmedo MD [facility] [place] [address] [place] [phone] 3 12/03/2023 12:06:21 12/03/2023 18:26:47 Pain of bilateral hands 7821031997 2400652 M79.642 Osteoarthritis 790112185 M19.90 Diabetic h and syndrome due to type 2 diabetes mellitus 2672494622 34706 E11.618 Tobacco user 973612340 Z 72.0 Nicotine dependence 5629 4008 F17.210 Additional diagnosis detail: Nicotine dependence , cigarettes , uncomplica xochitl [id number] Candelario Olmedo MD [facility] [place] [address] [place] [phone] 3 02/03/2024 11:38:11 02/03/2024 18:50:20 Hypertensive disorder 99098489 I10 Undifferen tiated inflammatory arthritis 073772937 M06.4 Degenerati ve joint disease involving multiple joints 069629777 M15.9 [id number] Candelario Olmedo MD [facility] [address] [address] 03/02/2024 11:25:00 03/02/2024 18:17:37 Undifferentiated inflammatory arthritis 307546505 M06.4 Osteoarthritis 428708702 M19.90 Rheumatoid arthritis of multiple joints 262545305 M06.09 [id number] Candelario Olmedo MD [facility] [place] [address] [facility] [place] [address] 07/14/2024 09:01:47 07/16/2024 15:21:22 Undifferentiated inflammatory arthritis 890931244 M19.90 M06.4 Osteoarthritis 818322307 M19.90 Health Concerns Section Related Observation LastModified by Organization Detai ls LastModified Time None Recorded Concern Status LastModified by Organization Details LastModified Time None Recorded Advance Directives Directive N: Payers Encounter Date Sequence Insurance Name Policy Number Policy Gimenez Covered Member ID Gimenez Member ID Guarantor Name 12/03/2023 1 [employer] [place] ON [place] AFTER 2020 (MEDICAID REPLACEMENT - HMO) Christal Dinh [id number] Christal Dinh 02/03/2024 1 [employer] [place] 2020 [place] REPLAC[place] - [place]MO) Christal Dinh [id number] Christal Dinh 03/02/2024 1 [employer] [place] 2020 [place]AC[place] - [place]MO) Christal Dinh [id number] Christal Dinh 07/14/2024 1 [employer] [place] RE[place]AC[place] - [place]MO) Christal Dinh [id number] Christal Dinh Notes Date Note Type Note Provider Name and Address Organization Details Recorded Time 4 text/html The patient is a 52-year-old postmenopausal white female smoker, with a history of hypertension, diabetes type 2 and hyperlipidemia, who is here today and seen in consultation at the request of Dr. Joseph regarding rheumatologic evaluation of bilateral hand pain, rule out underlying autoimmune disease. The patient describes onset over the past 6-8 months of gradually worsening deformities in the hands. She states for years since she was a child, she has had contractures of her pinky fingers, but she has been noticing a progressive enlargement of the knuckles, especially the MCP and PIP joints and DIP joints of both hands, more so on her right dominant hand versus the left side. The patient describes some soft tissue swelling about the 2nd and 3rd MCP joints, but no classic synovitis symptoms. She denies Raynaud s symptoms. She states the hands really are not all that stiff and her pain is only a 2/10 on a scale, but she reports that the right hand 3rd and 4th fingers tend to lock up and curl over each other making it difficult for her to use her hands at times. She still completes all of her own ADLs. She has no history of repetitive trauma to the hands. 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 She does use her hands each and every day. She reports that the hands will bother her more towards the end of the day after she has been quite busy and using them a lot. She has some intermittent numbness and tingling in the hands that comes and goes. Her senior production planner strength varies from day to day. On review of systems, she denies any recurrent infections, fevers, unexplained weight loss, skin rash, aphthous ulcers, sicca symptoms, neck swelling, lymph node swelling, cough, pleurisy. She smokes one-half to one-half to one pack per day of cigarettes. She denies any history of peptic ulcer disease, GI bleeding, inflammatory bowel disease, inflammatory eye disease, dysuria or gross hematuria or bleeding from the nares or gums. No history of hemochromatosis, I did review serologic workups, one from April 16, 2023, demonstrating a normal Westergren sed rate, C-reactive protein, rheumatoid factor, quantitative screen, as well as CCP antibody and CORBIN screen, suggesting that, perhaps, her symptoms have been ongoing for at least several months, perhaps 8 or more months despite what she reports above. Her most recent labs from October 29, 2023, demonstrate a normal CMP, hemoglobin A1c of 7.3%, with a normal CBC and urinalysis. X-rays in the hands demonstrate osteoarthritic changes at the MCP and PIP joints with swan neck deformities in the right hand s uggestive of rheumatoid arthritis. It was these x-rays and her symptoms that prompted referral here to rheumatology clinic. There is no family history of rheumatoid arthritis. Currently, the patient will use Tylenol as needed for analgesic relief.I have reviewed the patient s past medical history and [employer] intake form.yamile Arreaga a 52 year oldfemalepresenting for care. Visit Reason:Hand Hand/Wrist Concerns: -Location: , involving the right middle finger, ring finger -Duration: approximately 10 month(s) -Pain onset/timing: sudden onset, occurs intermittently, does not occur at night -Severity of pain: current severity 10/27 -Quality of pain: aching, dull, squeezing -Exacerbating factors: activity -Patient complains of: catching/locking, instability, limited ROM, swelling of surrounding area -Denies: ecchymosis, deformity, drainage, fevers, warmth, numbness, popping/clicking, erythema, tingling, wound/laceration of the affected area -Prior hand/wrist surgery: patient denies -Pain impacting ADLs: yes Treatments: -Seen by outside providers: no -Prior imaging/studies:X-ray-Pr ior imaging/studies location: [facility] -Previous treatments: medications -Prior medications: did not improve symptoms, including Ibuprofen or Tylenol -Clinical trials participant: patient denies -Denies prior: acupuncture, chiropractic treatments, injections, occupational therapy, physical therapy, surgery -Prior injury/difficulty with affected area: patient denies -Concern origination: Home -Hand dominance: right hand dominant ROS: :Getting Up at Night to Pass UrineGeneral:Fatigue, Unplanned Weight Gain, WeaknessImmuno:NegativeE NT:NegativeOphtho:Itchin g EyesCardiac:NegativeResp iratory:NegativeGI:Negat iveMusculoskeletal:Joint Pain, Morning StiffnessSkin:RashNeuro: Sensitivity or Pain of Hands or FeetPsych:Excessive WorriesEndo:NegativeHem: Negative Candelario Olmedo MD [address] [place] [address], [phone], [facility] 12/06/2023 22:40:16 4 text/html The patient is a 53-year-old white female with a history of bilateral hand pain, who is here today to follow up regarding her MRI results of the hands. Her serologic workup thus far by her primary care provider revealed the absence of a CCP and rheumatoid factor antibodies. The patient presents today and has undergone an MRI of the hands at [facility] on January 15, 2024, demonstrating active synovitis and erosions at the 2nd and 3rd MCP joints bilaterally, as well as at the right 5th PIP joint. 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 She reports that her morning stiffness in the hands is currently lasting up to 1-2 hours in duration. She does keep active with the hands, but reports she does occasionally drop objects. She has had no issues with Raynaud s symptoms. She is noted today to be hypertensive. She does have a history of hypertension, currently treated with hydrochlorothiazide therapy and GUTIERREZ inhibitor combination therapy. She has been taking her medications as prescribed. She does also have an underlying history of diabetes. Her hemoglobin A1c most recently was 7%. She reports she tries to watch her carbohydrates in her diet. She has had no chest pain, shortness of breath, orthopnea. She has not noticed any lower extremity edema, headaches, visual disturbances. No issues with slurred speech or numbness, tingling in the extremities. She does complain of swelling in her knuckles, especially at the MCP joints, more so on the right dominant side versus her left hand. She has also noticed some aching in her MTP joints of the feet.yamile Olmedo MD [address] [place] [address], [phone], [facility] 02/06/2024 18:11:58 4 text/html The patient is a 53-year-old female with seronegative RA and osteoarthritis who is here for a follow-up visit. She reports overall doing well on her low-dose hydroxychloroquine therapy. She finished her steroid taper 2-1/2 weeks ago and has not encountered any flares of her underlying synovitis. Her pain today is rated as 0 out of 10 on a scale. She reports improved movement in her fingers and improved senior production planner strength. She currently is experiencing less than 5 minutes of morning stiffness. She denies any Raynaud s symptoms. No fever or chills or generalized skin rash, visual complaints, myalgias, muscle weakness, aphthous ulcers, photosensitivity, cough, pleurisy, shortness of breath, chest pain or palpitations, GERD, melena or hematochezia, diarrhea or constipation, anorexia or early satiety, dysuria or gross hematuria. Candelario Olmedo MD [facility] [place] [address], [phone], [facility] 03/03/2024 22:22:36 text/html The patient is a 53-year-old female with seronegative rheumatoid arthritis and osteoarthritis, who is here today for a followup visit. She continues on low dose hydroxychloroquine and reports overall doing quite well. She has been very busy lately. She was taking care of her mother, who underwent an aortobifemoral bypass and abdominal aortic aneurysm repair. The patient s mother is now out of the hospital and rehabbing at home. She has been helping with various aspects of her care. She keeps active on her feet and has not encountered any stiffness or joint pain. No flares of her arthritis. She is seeing Ophthalmology once yearly for Plaquenil screening eye exams. There have been no issues with retinopathy. She denies any fever, chills, skin rash, pruritus, photosensitivity, aphthous ulcers, cough, pleurisy, shortness of breath, chest pain or palpitations, GERD, melena or hematochezia, diarrhea or constipation, loss of appetite, early satiety, dysuria or gross hematuria or bleeding from the nares or gums. Her labs from May 30, 2024, are reviewed with her today. They are all within normal limits.yamile Candelario Olmedo MD [address] [place] [address], [phone], [facility] 07/16/2024 15:21:21 OBGyn Episode No OBEpisode recorded.
== END 2024-07-18 14:26 | disposition home or self-care (01) ==
LOC: CHSIMG 14:26
PROVIDERS: PCP Family Medicine; Visit Provider Family Medicine
DX: Z12.31 Encounter for screening mammogram for malignant neoplasm of breast (principal)
CPT/HCPCS: 77063; 77067